=== PATIENT | male | born 1965 | race Caucasian/White ===

== ENCOUNTER 2016-12-26 08:14 | Inpatient (IN) | payer OTHER ==
[~2016-12-26] VITALS: Ht 180.3 cm; Wt 95.3 kg
[2016-12-26 10:18] LABS: HEMOGLOBIN 13.6 gm/dl (14.0-17.5); RED BLOOD COUNT 4.72 M/UL (4.20-5.50); WHITE BLOOD COUNT 7.4 K/UL (4.5-11.0)
[2016-12-26 10:48] LABS: BUN/CREATININE RATIO 19 (0-10)
[2016-12-27 03:40] LABS: HEMOGLOBIN 12.7 gm/dl (14.0-17.5); RED BLOOD COUNT 4.38 M/UL (4.20-5.50); WHITE BLOOD COUNT 5.9 K/UL (4.5-11.0)
[2016-12-27 04:00] LABS: BUN/CREATININE RATIO 14 (0-10)
[2016-12-28 05:24] LABS: HEMOGLOBIN 13.7 gm/dl (14.0-17.5); RED BLOOD COUNT 4.72 M/UL (4.20-5.50)
[2016-12-28 05:25] LABS: WHITE BLOOD COUNT 4.2 K/UL (4.5-11.0)
[2016-12-28 05:28] LABS: BUN/CREATININE RATIO 13 (0-10)
[2016-12-28] MEDS ORDERED: LISINOPRIL20 MG PO ×2 (19:28→19:36)
[2016-12-28] MEDS ORDERED: CATAPRES 0.1MG0.1 MG PO ×2 (19:28→19:35)
[2016-12-28] MEDS ORDERED: MULTIVITAMINS1 EAC1 PO (19:33)
[2016-12-28] MEDS ORDERED: FOLIC ACID1 MG PO (19:33)
[2016-12-28] MEDS ORDERED: PROTONIX 40 MG40 M1 PO (19:34)
[2016-12-28] MEDS ORDERED: THIAMINE HCL50 MG PO (19:34)
[2016-12-28] MEDS ORDERED: IBUPROFEN800 MG PO (19:35)
== END 2016-12-28 19:52 | disposition home or self-care (01) | DRG 917 ==
LOC: M/S 08:14 → CCU 08:14 → MED SURG 4 08:14 → CCU 09:13 → MED SURG 4 12-27 21:17
PROVIDERS: Emergency Medicine; Internal Medicine; ADMIT Internal Medicine
DX: T43.621A Poisoning by amphetamines, accidental (unintentional), initial encounter (principal); G92 Toxic encephalopathy; J96.01 Acute respiratory failure with hypoxia; B17.9 Acute viral hepatitis, unspecified; T40.1X1A Poisoning by heroin, accidental (unintentional), initial encounter; Y92.009 Unspecified place in unspecified non-institutional (private) residence as the place of occurrence of the external cause; K75.89 Other specified inflammatory liver diseases; K80.20 Calculus of gallbladder without cholecystitis without obstruction; F17.210 Nicotine dependence, cigarettes, uncomplicated; Z72.89 Other problems related to lifestyle; R07.89 Other chest pain
CPT/HCPCS: 36415; 71010; 71111; 80053; 80074; 80307; 81001; 82140; 82150; 82550; 82553; 83735; 84484; 85025; 85610; 87040; 87070; 87086; 87205; 87390; 93005; C9113; J1650; J2310; J7030; J7050; Q9962